=== PATIENT | female | born 1955 | race African-American/Black ===

== ENCOUNTER 2021-04-08 04:41 | Inpatient (IN) | payer OTHER ==
[~2021-04-08] VITALS: Ht 167.6 cm; Wt 63.5 kg
[2021-04-08 05:13] LABS: HEMATOCRIT 32.8 % (31.2-41.9); MEAN CORPUSCULAR HEMOGLOBIN 21.1 uug (24.7-32.8); MEAN CORPUSCULAR VOLUME 71.9 fL (75.5-95.3); PLATELET COUNT (AUTO) 433 K/uL (179-408)
[2021-04-08] MEDS ORDERED: ALBU8.5H8 IH (05:15)
[2021-04-08] MEDS ORDERED: FURO-151 PO (05:15)
[2021-04-08] MEDS ORDERED: AMLODIPINE PO (05:15)
[2021-04-08] MEDS ORDERED: CLONIDINE PO (05:15)
[2021-04-08 05:22] LABS: CREATININE 2.3 mg/dL (0.6-1.3)
[2021-04-08 05:34] LABS: BILIRUBIN,DIRECT 0.1 mg/dL (0.0-0.2); BILIRUBIN,TOTAL 0.2 mg/dL (0.2-1.0); TOTAL PROTEIN, SERUM 4.9 g/dL (6.4-8.2)
[2021-04-08] MEDS ORDERED: FUROSEMIDE 40 MG/4 ML VIAL ONE (05:59)
[2021-04-08] MEDS ORDERED: NITROGLYCERIN OINT 1 GM PACKET TP ONE ×2 (05:59→06:00)
[2021-04-08] MEDS ORDERED: FUROSEMIDE 40 MG/4 ML VIAL IV ONE (06:00)
--- NOTE | 2021-04-08 06:14 | NUR ---
Epic paged, awaiting call back from Shirley Harden NP
--- NOTE | 2021-04-08 06:15 | NUR ---
Pt. admitted to tele , under care of Shirley Harden TEMPERATURE REGULATOR Belongs List completed.
[2021-04-08 06:31] LABS: EOSINOPHILS % (MANUAL) 2 % (0-8); LYMPHOCYTES % (MANUAL) 6 % (20-40); MONOCYTES % (MANUAL) 4 % (2-10); NEUTROPHILS % (MANUAL) 88 % (42-75)
[2021-04-08] MEDS ORDERED: NITROGLYCERIN 0.4 MG/TAB BOTTLE SL PRN (06:45)
[2021-04-08] MEDS ORDERED: ALBUTEROL SULFATE 2.5 MG/3 ML NEBU NEB PRN (06:45)
[2021-04-08] MEDS ORDERED: IPRATROPIUM BROMIDE 0.5 MG/2.5 ML NEBU NEB PRN (06:45)
[2021-04-08] MEDS ORDERED: BUMETANIDE INJ 8 MG in IV DEXTROSE 5% 48 ML IV ONE (08:30)
[2021-04-08] MEDS ORDERED: FUROSEMIDE 40 MG/4 ML VIAL IVP SCH (09:00)
[2021-04-08] MEDS: HEPARIN SODIUM,PORCINE 5,000 UNITS/ML VIAL SQ SCH ×2 (09:51→20:27)
[2021-04-08 11:03] VITALS: BP 159/83
[2021-04-08 11:33] VITALS: BP 159/83
--- NOTE | 2021-04-08 12:00 | NUR ---
received change of shift report on pt. a/ox4, pt has distended abdomen, on tele monitor NSR, pt saturating at 97% on room air, pt complained of SOB, O2 used for comfort. pt ambulatory, IV on the left FA 20g on Bumex drip at 5ml/hr for 16 hr. will continue to monitor.
[2021-04-08 15:06] LABS: *BILIRUBIN,URIN NEGATIVE (NEGATIVE); *BLOOD, URINE NEGATIVE (NEGATIVE); *CLARITY,URINE CLEAR (CLEAR); *COLOR,URINE YELLOW (YELLOW); *KETONES,URINE NEGATIVE (NEGATIVE); *UROBILINOGEN,URINE 0.2 E.U./dl (NORMAL); LEUKOCYTE ESTERASE ,URINE NEGATIVE (NEGATIVE); NITRITE, URINE NEGATIVE (NEGATIVE); PH,URINE 5.5 (5.0-8.0); UGLUCOSE NEGATIVE (NEGATIVE)
[2021-04-08 15:11] LABS: *CREATININE,URINE < 13.0 mg/dL (30-125)
[2021-04-08 15:27] VITALS: BP 161/88
[2021-04-08 20:00] VITALS: BP 158/98
[2021-04-08] MEDS ORDERED: hydrALAZINE HCL 25 MG TABLET PO PRN (23:30)
--- NOTE | 2021-04-08 23:45 | NUR ---
PAtient awake noted BP 166/105.Denies pain at this time. No acute distress noted.On O2 at 2 LPM via NC saturating well at 96 %. notified with new order given noted and carried out. Hydralazine 25 mg given.Will continue to monitor.Call light with in reach. Will continue to monitor.
[2021-04-09 00:02] VITALS: BP 166/105
[2021-04-09 00:04] VITALS: BP 166/105
[2021-04-09] MEDS ORDERED: diphenhydrAMINE 50 MG CAPSULE PO PRN (00:30)
--- NOTE | 2021-04-09 00:55 | NUR ---
Patient requesting for sleeping pill. BUNNY Harden notified with new order received noted and carried out.Benadryl given.All needs anticipated and met accordingly. Will continue to monitor.
--- NOTE | 2021-04-09 01:32 | NUR ---
Patient awake noted shes taking off her oxygen. Stated she's not comfortable with her oxygen at this time. 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 Spoke to Manuel /cousin stated he will be here in 2 minutes. Patient went AMa. Dc'd Iv line and Tele.BUNNY Harden notified .Bicycle Subassembler and charge nurse made aware. Patient insisting to wheeled her downstairs. Assisted by electrical sign wirer helper.
== END 2021-04-09 01:30 | disposition left against medical advice (07) | DRG 194 ==
LOC: ER 04:43 → TELE3 06:37
PROVIDERS: ADMIT Registered Nurse; ATTEND Registered Nurse
DX: I13.0 Hypertensive heart and chronic kidney disease with heart failure and stage 1 through stage 4 chronic kidney disease, or unspecified chronic kidney disease (principal); N17.0 Acute kidney failure with tubular necrosis; I42.8 Other cardiomyopathies; I50.23 Acute on chronic systolic (congestive) heart failure; F17.210 Nicotine dependence, cigarettes, uncomplicated; Z20.822 Contact with and (suspected) exposure to COVID-19; N18.9 Chronic kidney disease, unspecified; J44.9 Chronic obstructive pulmonary disease, unspecified; I49.3 Ventricular premature depolarization; F17.200 Nicotine dependence, unspecified, uncomplicated; F14.10 Cocaine abuse, uncomplicated; Z91.19 Patient's noncompliance with other medical treatment and regimen
CPT/HCPCS: 36415; 70030-TC; 71045; 76770; 84156; 84300; 85025; 93005; 93307; A4663; G0378; J1644; J1940; J3490; J7040; J7060; Q0163